=== PATIENT | female | born 1975 | race Asian ===

== ENCOUNTER 2022-12-18 20:57 | Emergency (ER) | payer MEDICAID, SELFPAY ==
[2022-12-18 20:59] VITALS: TEMP 35.8; BMI 23.1
[2022-12-18 21:12] VITALS: BP 154/97; PULSE 81; RESP 20; O2SAT 100
--- NOTE | 2022-12-18 21:30 | CT_ITS ---
EXAM: CT Abdomen And Pelvis W/O Contrast Injection HISTORY: Kidney Stone TECHNIQUE: Routine protocol CT abdomen and pelvis. IV Contrast: None.. Oral contrast: None. RADIATION DOSAGE (If Supplied By Facility): CTDIvol = ( 6.04 ) mGy, DLP = ( 336.96 ) mGycm Individualized dose optimization techniques were used for this CT. COMPARISON: None. LIMITATIONS: None. FINDINGS: LOWER CHEST: Included lung bases are clear. LIVER: Grossly unremarkable. GALLBLADDER AND BILIARY TREE: Grossly unremarkable. PANCREAS: Grossly unremarkable. SPLEEN: Grossly unremarkable. ADRENAL GLANDS: Grossly unremarkable. KIDNEYS AND URETERS: There is a 7 mm transverse by 9 mm cc/length calculus with irregular margins in the proximal right ureter distal to the ureteropelvic junction. The right proximal right ureter is dilated with moderate right hydronephrosis and perinephric and periureteral stranding. Smaller calculi in the left kidney. No hydronephrosis on the left. PERITONEUM: No free air. No free fluid. BOWEL: No bowel obstruction. APPENDIX: Visualized and unremarkable. No evidence of acute appendicitis. VESSELS: Abdominal aorta is normal caliber. REPRODUCTIVE ORGANS: Grossly unremarkable. URINARY BLADDER: Mildly distended. Small focus of air in the bladder presumably due to recent instrumentation. ABDOMINAL WALL: Unremarkable. BONES: No acute abnormalities. CT/Abdomen/Pelvis without Cont IMPRESSION: Large 7 x 9 mm proximal right ureteral calculus with moderate right hydroureteronephrosis. Left nephrolithiasis. Electronically Signed: Thu Morales MD at 22:30 EDT ,
--- NOTE | 2022-12-18 21:31 | EDS_ITS ---
HPI HPI - Female History of Present Illness Chief Complaint: Flank Pain Narrative Narrative: 47-year-old female presenting with flank pain. Patient states she is visiting from [place] and she speaks Mandarin. Ob Gyn phone was used. Patient states she has history of kidney stones. She has right flank pain for the last couple of days. It is intermittent. She has nausea and sweats. Patient states it feels like previous kidney stones. She denies dysuria, hematuria. No fevers. It sounds that she had lithotripsy but no other surgeries. No allergies to medications. She states she does not take any everyday medications. Denies concern for . [facility] Medical History (Updated 12/18/22 @ 23:[address] Ramesh Nance, DO) Kidney stone Home Medications ondansetron 4 mg disintegrating tablet 4 mg PO Q8H PRN PRN Nausea #14 tabs 12/18/22 [Rx Last Taken Unknown] oxycodone 5 mg tablet 5 mg PO Q6H PRN pain 3 days #12 tabs 12/18/22 [Rx Last Taken Unknown] Allergy/AdvReac Type Severity Reaction Status Date / Time No Known Allergies Allergy Verified 12/18/22 21:15 Family History no significant family his Social History household members: family Smoking Status: Never smoker ROS ROS ED Constitutional Constitutional ED: Reports sweats; Denies chills or fever(s) Eyes Eyes: Denies blurry vision or change in vision ENT ENT ED: Denies ear pain or sore throat Cardiovascular Cardiovascular: Denies chest pain, palpitations or racing heartbeat Respiratory/Chest Respiratory/Chest: Denies cough, dyspnea or sputum Gastrointestinal Gastrointestinal: Reports abdominal pain, nausea and vomiting; Denies constipation or diarrhea Genitourinary Genitourinary ED: Denies dysuria, hematuria or urinary frequency Musculoskeletal Musculoskeletal: Denies arthralgias, myalgias or neck pain Integumentary Denies abscess, Abrasions or rash Neurologic Neurologic: Denies headache(s), paresthesias or weakness Psychiatric Psychiatric: Denies anxiety, depression, suicidal ideation or suicidal thoughts Endocrine Endocrinology: Denies polydipsia or polyuria EXAM Physical Exam Const Vital Signs: 12/18/22 20:59 12/18/22 21:12 Temperature 96.5 F L Temperature Source Temporal Pulse Rate 81 Respiratory Rate 20 H Blood Pressure 154/97 H Blood Pressure Mean 116 Pulse Ox 100 Oxygen Delivery Method Room Air Positive well nourished General Appearance ED: NAD HEENT Reports moist mucous membranes Eyes PERRL and EOMs intact bilaterally Resp normal respiratory effort Cardio regular rate and regular rhythm GI Palpation: tender RLQ Back/Spine General Back: CVA tenderness right Extremity normal to inspection Neuro oriented x3 and CN's II-XII intact bilaterally Sensorium / Orientation: alert Motor Exam: strength 5/5 throughout Skin no rashes or lesions noted and no wounds MDM MDM MDM Narrative Medical decision making narrative: Patient presenting with right flank pain. Is been intermittent for the last couple days. She has history of kidney stones. Differential includes UTI, pyelonephritis, colitis, diverticulitis, appendicitis. Patient does appear to have CVA tenderness and she states this is typical of her kidney stone. Patient medicated with morphine, Zofran, Toradol. CBC will be obtained to assess white blood cell count, hemoglobin, platelets. Urinalysis to assess for UTI. hCG to assess for . CT abdomen pelvis to assess for kidney stone. CBC shows slight leukocytosis of 14.8. Hemoglobin stable at 13.5. Renal function electrolytes within normal limits. Urinalysis shows hematuria but is slightly contaminated. Not consistent with UTI. CT of the abdomen pelvis without contrast shows a 7 x 9 ureteral stone with hydronephrosis and hydroureter. On reevaluation the patient is doing well. I did inform her that likely this would be surgical as it is largely status for couple of days and probably would not pass. She states she wants to go back to [place] to have surgery. I gave her return precautions and I put her on oxycodone and Zofran for home. I made her a disc that she can take to urology when she goes home. Impression: 1. 7 x 9 ureteral stone 2. Hydronephrosis 3. Hematuria 4. Hydroureter Lab Data Labs: Laboratory Results - last 24 hr 12/18/22 12/18/22 21:38 22:28 WBC 14.8 H RBC 4.60 Hgb 13.5 Hct 42.2 MCV 91.7 MCH 29.3 MCHC 32.0 RDW Std Deviation 41.1 RDW Coeff of Mary 12.3 Plt Count 336 MPV 8.9 Immature Gran % (Auto) 0.400 Neut % (Auto) 80.7 H Lymph % (Auto) 11.4 L [place] % (Auto) 5.9 Eos % (Auto) 1.1 Baso % (Auto) 0.5 Absolute Neuts (auto) 11.9 H Absolute Lymphs (auto) 1.69 Nucleated RBC % 0 Sodium 143 Potassium 3.8 Chloride 108 H Carbon Dioxide 31.0 Anion Gap 4 L BUN 15 Creatinine 0.63 Estim Creat Clear Calc 81.51 Est GFR (MDRD) Af Amer 129 Est GFR (MDRD) Non-Af 107 BUN/Creatinine Ratio 23.9 H Glucose 147 H Calcium 9.3 Serum , Qual NEGATIVE Urine Color Yellow Urine Clarity Sl. Cloudy Urine pH 7.0 Ur Specific [place] 1.015 Urine Protein 30 H Urine Glucose (UA) Normal Urine Ketones Negative Urine Occult Blood 250 H Urine Nitrite Negative Urine Bilirubin Negative Urine Urobilinogen Normal Ur Leukocyte Esterase 500 H Urine RBC 25-50 SEEN Urine WBC 5-10 SEEN Ur Squamous Epith Cells 0-5 SEEN Urine Bacteria 1+ Urine Mucus 0 SEEN Radiography Diagnostic Testing: Clinical Impression(s) from Imaging Studies Abdomen/Pelvis CT 12/18/22 21:30 IMPRESSION: Large 7 x 9 mm proximal right ureteral calculus with moderate right hydroureteronephrosis. Left nephrolithiasis. Electronically Signed: Thu Morales MD at 22:30 EDT , Discharge Plan Triage Chief Complaint: Flank Pain ED Provider: Ramesh Nance Dx/Rx/DC Orders Instructions: ED Kidney Stone w/ Colic Prescriptions: New oxycodone 5 mg tablet 5 mg PO Q6H PRN (Reason: pain) 3 Days Qty: 12 0RF ondansetron 4 mg tablet,disintegrating 4 mg PO Q8H PRN PRN (Reason: Nausea) Qty: 14 0RF Primary Care Provider: Care Physician,No Primary Referrals: Care Physician,No Primary [Primary Care Provider] - Disposition Disposition: Home, Self Care
[2022-12-18] MEDS: Ketorolac 15 MG/ML Vial IV (21:44)
[2022-12-18] MEDS: Ondansetron 4 MG/2 ML Vial IV (21:44)
[2022-12-18] MEDS: Morphine 4 MG/ML Syringe IV (21:44)
[2022-12-18 21:45] LABS: Absolute Lymphocyte Count 1.69 X10^3/uL (0.83-4.51); Absolute Neutrophil Count 11.9 X10^3/uL (2.0-7.7); Basophil# 0.07 X10^3/uL; Basophil% 0.5 % (0-1); Eosinophil# 0.16 X10^3/uL; Eosinophils% 1.1 % (0-5); Hematocrit 42.2 % (37-47); Hemoglobin 13.5 g/dL (12.0-15.0); Lymphocyte # 1.69 X10^3/ul (0.83-4.51); Lymphocyte % 11.4 % (19-41); Mean Corpuscular Hgb 29.3 pg (27.0-32.0); Mean Corpuscular Volume 91.7 fL (81-99); Mean Platelet Vol. 8.9 fl (6.2-12.0); Monocyte# 0.87 X10^3/uL; Monocyte% 5.9 % (0-10); NRBC Flagged by Analyzer 0 % (0-5); Neutrophil # 11.91 X10^3/uL (2.7-7.7); Neutrophil % 80.7 % (47-70); Platelet Count 336 K/mm3 (150-450); RBC Distribution Width CV 12.3 % (11.6-14.6); RBC Distribution Width SD 41.1 fl (35.1-43.9); White Blood Count 14.8 K/mm3 (4.4-11.0)
[2022-12-18 21:56] LABS: Internal QC Validated? YES +Cl - CLEAR BKGD; Pregnancy, Serum, hCG Quali. NEGATIVE Negative
[2022-12-18 21:58] LABS: Anion Gap 4 (5-15); BUN 15 mg/dL (7-18); BUN/Creat Ratio 23.9 RATIO (10-20); Calcium,Total 9.3 mg/dL (8.5-10.1); Chloride 108 mmol/L (98-107); Creatinine, Serum 0.63 mg/dL (0.55-1.02); EST Glomerular Filtration Rate 107 mL/min (>60); Est Glom Filt Rate - Afr Amer 129 mL/min (>60); Estimated Creatinine Clearance 81.51 ml/min; Glucose 147 mg/dL (74-106); Potassium 3.8 mmol/L (3.5-5.1); Sodium Level 143 mmol/L (136-145)
[2022-12-18 22:00] VITALS: RESP 16; O2SAT 100
[2022-12-18 22:34] LABS: Mucous, Urine 0 SEEN /hpf (<or=2+)
[2022-12-18 22:35] LABS: Color, Urine Yellow (Yellow); Glucose, Dipstick Normal (Normal); Ketone-Dipstick Negative (Negative); Leukocyte Esterase-Dipstick 500 /ul (Negative); Nitrite-Dipstick Negative (Negative); Occult Blood-Urine 250 /ul (Negative); Protein-Dipstick 30 mg/dl (Negative); Specific Gravity, Urine 1.015 (1.002-1.030); Urine Bilirubin Dipstick Negative (Negative); Urine Clarity Sl. Cloudy (Clear); Urine Urobilinogen Normal (Normal)
[2022-12-18 22:57] LABS: Bacteria 1+ /hpf (None Seen); Red Blood Cells-Urine 25-50 SEEN /hpf (0-5); Squamous Epithelial Cells - UA 0-5 SEEN /hpf (5-10); White Blood Cells 5-10 SEEN /hpf (0-5)
[2022-12-19 00:04] VITALS: PULSE 84; RESP 16
== END 2022-12-19 00:04 | disposition home or self-care (01) ==
PROVIDERS: Emergency Provider Student in an Organized Health Care Education/Training Program; Visit Provider Student in an Organized Health Care Education/Training Program
DX: N13.2 Hydronephrosis with renal and ureteral calculous obstruction (principal); R31.9 Hematuria, unspecified; N13.4 Hydroureter
CPT/HCPCS: 74176; 80048; 81001; 84703; 85025; 96374; 96375; 99285; A4216; J2405

== ENCOUNTER 2023-05-09 19:44 | Emergency (ER) | payer MEDICAID, SELFPAY ==
[2023-05-09 19:45] VITALS: BP 178/98; PULSE 88; RESP 18; TEMP 36.6; O2SAT 98; BMI 26.4
[2023-05-09 20:18] LABS: Mucous, Urine 0 SEEN /hpf (<or=2+)
--- NOTE | 2023-05-09 20:21 | EDS_ITS ---
HPI <EFRAIN De La Fuente - Last Filed: 05/09/23 21:35> HPI - Female History of Present Illness Chief Complaint: Flank Pain Narrative Narrative: Patient presenting today due to sudden onset left sided flank pain that radiates to her left lower quadrant that has been sharp and constant over the past 1.5 hours. She reports that she has a history of kidney stones and has had to have lithotripsy and surgery performed in the past. She is here with her friend who is helping translate for her as she speaks Mandarin. She denies any urinary symptoms, fevers, chills, nausea, and vomiting. PFSH <EFRAIN De La Fuente - Last Filed: 05/09/23 21:35> PFSH Medical History Kidney stone Home Medications ondansetron 4 mg disintegrating tablet 4 mg PO Q8H PRN PRN Nausea #14 tabs 12/18/22 [Rx Last Taken Unknown] oxycodone 5 mg tablet 5 mg PO Q6H PRN pain 3 days #12 tabs 12/18/22 [Rx Last Taken Unknown] oxycodone-acetaminophen 5 mg-325 mg tablet (Percocet) 1 tab PO Q8H PRN pain 3 days #10 tabs 05/09/23 [Rx Last Taken Unknown] Allergy/AdvReac Type Severity Reaction Status Date / Time No Known Allergies Allergy Verified 05/09/23 19:47 Social History household members: family Smoking Status: Never smoker ROS <EFRAIN De La Fuente - Last Filed: 05/09/23 21:35> ROS ED Constitutional Constitutional ED: Denies chills or fever(s) Cardiovascular Cardiovascular: Denies chest pain Respiratory/Chest Respiratory/Chest: Denies cough or dyspnea Gastrointestinal Gastrointestinal: Reports nausea; Denies abdominal pain or vomiting Genitourinary Genitourinary ED: Denies dysuria, hematuria or urinary urgency Musculoskeletal Musculoskeletal: Reports back pain Integumentary Denies rash Neurologic Neurologic: Denies weakness EXAM <EFRAIN De La Fuente - Last Filed: 05/09/23 21:35> Physical Exam Const Vital Signs: 05/09/23 19:45 05/09/23 21:47 Temperature 97.9 F 98.6 F Temperature Source Temporal Pulse Rate 88 78 Respiratory Rate 18 16 Blood Pressure 178/98 H 147/86 H Blood Pressure Mean 124 106 Pulse Ox 98 99 Oxygen Delivery Method Room Air Positive well nourished, well developed and no apparent distress General Appearance ED: well developed HEENT Reports normocephalic and head/scalp atraumatic Mouth ED: Yes moist mucous membranes normal Eyes PERRL and EOMs intact bilaterally Neck full ROM and supple Chest Wall inspection of chest normal Resp normal respiratory effort and clear to auscultation bilaterally Cardio regular rate and regular rhythm GI soft to palpation, non-tender, non-distended and no masses GI Narrative: Minimal tenderness to the left lower quadrant without rigidity, guarding, or peritoneal signs. Back/Spine normal ROM and normal to inspection General Back: CVA tenderness left Extremity normal to inspection and full ROM Neuro oriented x3, CN's II-XII intact bilaterally, moves all extremities, no focal motor deficits and no sensory deficits noted Sensorium / Orientation: awake and alert Psych mental status grossly normal and thought process normal Skin no rashes or lesions noted and no wounds <Dr. Myron Driscoll MD - Last Filed: 05/10/23 00:51> Physical Exam Const Vital Signs: 05/09/23 19:45 05/09/23 21:47 Temperature 97.9 F 98.6 F Temperature Source Temporal Pulse Rate 88 78 Respiratory Rate 18 16 Blood Pressure 178/98 H 147/86 H Blood Pressure Mean 124 106 Pulse Ox 98 99 Oxygen Delivery Method Room Air MDM <EFRAIN De La Fuente - Last Filed: 05/09/23 21:35> [facility] Narrative Medical decision making narrative: Patient presenting with left sided flank pain that radiates to her left lower quadrant that she has had for the past hour and a half. She has an extensive history of kidney stones and has had to have surgical removal of the right-sided kidney stone and lithotripsy performed in the past. She was here in December 2022 with a large kidney stone that had to be surgically removed, during that time CT scan showed a small stone in the left kidney. Given her history, CT scan without contrast of the abdomen and pelvis will be obtained to rule out kidney stone and other abdominal etiology. She will be given IV nausea and pain medication. UA will be obtained to rule out UTI. Basic labs will be obtained. Patient refused her CT scan, shortness that she has had multiple scans recently that have shown kidney stones and she does have a follow-up with her specialist in [place] in the next week or so. She reports that she just wants something for pain. Given she is nontoxic-appearing, afebrile, there is no UTI or leukocytosis I do feel that this is reasonable. She will be given a prescription for Percocet and strict return instructions. Lab Data Labs: Laboratory Results - last 24 hr 05/09/23 05/09/23 20:00 20:15 WBC 6.1 RBC 4.15 L Hgb 12.2 Hct 37.5 MCV 90.4 MCH 29.4 MCHC 32.5 RDW Std Deviation 39.6 RDW Coeff of Mary 12.1 Plt Count 276 MPV 9.1 Immature Gran % (Auto) 0.200 Neut % (Auto) 63.2 Lymph % (Auto) 24.4 [place] % (Auto) 8.6 Eos % (Auto) 2.6 Baso % (Auto) 1.0 Absolute Neuts (auto) 3.8 Absolute Lymphs (auto) 1.48 Nucleated RBC % 0 Sodium 144 Potassium 3.7 Chloride 113 H Carbon Dioxide 28.0 Anion Gap 3 L BUN 17 Creatinine 0.70 Estim Creat Clear Calc 75.14 Est GFR (MDRD) Af Amer 114 Est GFR (MDRD) Non-Af 94 BUN/Creatinine Ratio 24.3 H Glucose 151 H Calcium 8.8 Serum , Qual NEGATIVE Urine Color Yellow Urine Clarity Cloudy Urine pH 6.0 Ur Specific [place] 1.015 Urine Protein 30 H Urine Glucose (UA) Normal Urine Ketones 5 H Urine Occult Blood 250 H Urine Nitrite Negative Urine Bilirubin Negative Urine Urobilinogen Normal Ur Leukocyte Esterase 100 H Urine RBC > 100 SEEN Urine WBC 5-10 SEEN Ur Squamous Epith Cells 0-5 SEEN Urine Bacteria RARE Urine Mucus 0 SEEN <Dr. Myron Driscoll MD - Last Filed: 05/10/23 00:51> [facility] Lab Data Labs: Laboratory Results - last 24 hr 05/09/23 05/09/23 20:00 20:15 WBC 6.1 RBC 4.15 L Hgb 12.2 Hct 37.5 MCV 90.4 MCH 29.4 MCHC 32.5 RDW Std Deviation 39.6 RDW Coeff of Mary 12.1 Plt Count 276 MPV 9.1 Immature Gran % (Auto) 0.200 Neut % (Auto) 63.2 Lymph % (Auto) 24.4 [place] % (Auto) 8.6 Eos % (Auto) 2.6 Baso % (Auto) 1.0 Absolute Neuts (auto) 3.8 Absolute Lymphs (auto) 1.48 Nucleated RBC % 0 Sodium 144 Potassium 3.7 Chloride 113 H Carbon Dioxide 28.0 Anion Gap 3 L BUN 17 Creatinine 0.70 Estim Creat Clear Calc 75.14 Est GFR (MDRD) Af Amer 114 Est GFR (MDRD) Non-Af 94 BUN/Creatinine Ratio 24.3 H Glucose 151 H Calcium 8.8 Serum , Qual NEGATIVE Urine Color Yellow Urine Clarity Cloudy Urine pH 6.0 Ur Specific [place] 1.015 Urine Protein 30 H Urine Glucose (UA) Normal Urine Ketones 5 H Urine Occult Blood 250 H Urine Nitrite Negative Urine Bilirubin Negative Urine Urobilinogen Normal Ur Leukocyte Esterase 100 H Urine RBC > 100 SEEN Urine WBC 5-10 SEEN Ur Squamous Epith Cells 0-5 SEEN Urine Bacteria RARE Urine Mucus 0 SEEN Treatment and Re-Evaluation Narrative: I have personally performed a face to face assessment of the patient and have reviewed the RACHEL Note. I performed a substantive portion of the visit including all aspects of the following. My bustos findings include: History is acute onset left flank pain earlier today, feels like prior kidney stone. No fevers, chills, dysuria, gross hematuria. Exam is mild left CVA tenderness, abdomen benign, no pulsatile mass neurovascularly intact distally all 4 extremities. Medical Decison Making after analgesics patient feeling much better. Urinalysis shows no acute infection. CT ordered but she declines, saying that she is following up with urology already somewhere in [place] where she already had r ecent CTs. This is entirely reasonable and we will discharge her home with analgesics. Other additions or changes: [None] Discharge Plan Triage Chief Complaint: Flank Pain ED Midlevel Provider: Hillary Rodriguez ED Provider: Myron Driscoll Dx/Rx/DC Orders Clinical Impression: Left flank pain, History of kidney stones Instructions: ED Kidney Stone with Pain Prescriptions: New oxycodone-acetaminophen [Percocet] 5-325 mg tablet 1 tab PO Q8H PRN (Reason: pain) 3 Days Qty: 10 0RF No Action oxycodone 5 mg tablet 5 mg PO Q6H PRN (Reason: pain) 3 Days Qty: 12 0RF ondansetron 4 mg tablet,disintegrating 4 mg PO Q8H PRN PRN (Reason: Nausea) Qty: 14 0RF Primary Care Provider: Care Physician,No Primary Referrals: Care Physician,No Primary [Primary Care Provider] - Activity Restrictions/Additional Instructions: Please follow-up with your urologist. Return for worsening of your symptoms. Disposition Disposition: Home, Self Care Discharge Date/Time: 05/09/23 21:48
[2023-05-09 20:28] LABS: Color, Urine Yellow (Yellow); Glucose, Dipstick Normal (Normal); Ketone-Dipstick 5 mg/dl (Negative); Leukocyte Esterase-Dipstick 100 /ul (Negative); Nitrite-Dipstick Negative (Negative); Occult Blood-Urine 250 /ul (Negative); Protein-Dipstick 30 mg/dl (Negative); Specific Gravity, Urine 1.015 (1.002-1.030); Urine Bilirubin Dipstick Negative (Negative); Urine Clarity Cloudy (Clear); Urine Urobilinogen Normal (Normal)
[2023-05-09] MEDS: Ketorolac 15 MG/ML Vial IV (20:32)
[2023-05-09] MEDS: Ondansetron 4 MG/2 ML Vial IV (20:32)
[2023-05-09 20:34] LABS: Absolute Lymphocyte Count 1.48 X10^3/uL (0.83-4.51); Absolute Neutrophil Count 3.8 X10^3/uL (2.0-7.7); Basophil# 0.06 X10^3/uL; Eosinophil# 0.16 X10^3/uL; Eosinophils% 2.6 % (0-5); Hematocrit 37.5 % (37-47); Hemoglobin 12.2 g/dL (12.0-15.0); Lymphocyte # 1.48 X10^3/ul (0.83-4.51); Lymphocyte % 24.4 % (19-41); Mean Corp Hgb Conc 32.5 g/dL (32-36); Mean Corpuscular Hgb 29.4 pg (27.0-32.0); Mean Corpuscular Volume 90.4 fL (81-99); Mean Platelet Vol. 9.1 fl (6.2-12.0); Monocyte# 0.52 X10^3/uL; Monocyte% 8.6 % (0-10); NRBC Flagged by Analyzer 0 % (0-5); Neutrophil # 3.84 X10^3/uL (2.7-7.7); Neutrophil % 63.2 % (47-70); Platelet Count 276 K/mm3 (150-450); RBC Distribution Width CV 12.1 % (11.6-14.6); RBC Distribution Width SD 39.6 fl (35.1-43.9); Red Blood Count 4.15 M/mm3 (4.2-5.4); White Blood Count 6.1 K/mm3 (4.4-11.0)
[2023-05-09 20:55] LABS: Red Blood Cells-Urine > 100 SEEN /hpf (0-5)
[2023-05-09 20:56] LABS: Internal QC Validated? YES +Cl - CLEAR BKGD; Pregnancy, Serum, hCG Quali. NEGATIVE Negative
[2023-05-09 20:56] LABS: Bacteria RARE /hpf (None Seen); Squamous Epithelial Cells - UA 0-5 SEEN /hpf (5-10); White Blood Cells 5-10 SEEN /hpf (0-5)
[2023-05-09 20:58] LABS: Anion Gap 3 (5-15); BUN 17 mg/dL (7-18); BUN/Creat Ratio 24.3 RATIO (10-20); Calcium,Total 8.8 mg/dL (8.5-10.1); Chloride 113 mmol/L (98-107); EST Glomerular Filtration Rate 94 mL/min (>60); Est Glom Filt Rate - Afr Amer 114 mL/min (>60); Estimated Creatinine Clearance 75.14 ml/min; Glucose 151 mg/dL (74-106); Potassium 3.7 mmol/L (3.5-5.1); Sodium Level 144 mmol/L (136-145)
--- NOTE | 2023-05-09 21:11 | ED.RN ---
pt refusing CT scan because she is going to see in [place] next week dr. lopes aware
[2023-05-09 21:47] VITALS: BP 147/86; PULSE 78; RESP 16; TEMP 37; O2SAT 99
== END 2023-05-09 21:48 | disposition home or self-care (01) ==
LOC: ED 21:46
PROVIDERS: Physician Assistant; Emergency Provider Emergency Medicine; Visit Provider Emergency Medicine
DX: R10.9 Unspecified abdominal pain (principal)
CPT/HCPCS: 80048; 81001; 84703; 85025; 96374; 96375; 99282; J2405